=== PATIENT | female | born 1960 | race African-American/Black ===

== ENCOUNTER 2016-11-28 15:18 | Emergency (ER) | payer OTHER ==
[~2016-11-28] VITALS: Ht 160 cm; Wt 83.9 kg
[2016-11-28] MEDS ORDERED: NEXIUM40 MG PO (16:30)
[2016-11-28] MEDS ORDERED: COREG25 MG PO (16:30)
[2016-11-28] MEDS ORDERED: LIPITOR 20 MG T20 M1 PO (16:30)
[2016-11-28] MEDS ORDERED: LEVEMIR SUBQ (16:31)
[2016-11-28] MEDS ORDERED: GLUCOTROL5 MG (16:32)
[2016-11-28 16:45] VITALS: BP 147/90
== END 2016-11-28 16:46 | disposition home or self-care (01) ==
LOC: ER 15:18
DX: S83.411A Sprain of medial collateral ligament of right knee, initial encounter (principal); I10 Essential (primary) hypertension; K21.9 Gastro-esophageal reflux disease without esophagitis; E11.40 Type 2 diabetes mellitus with diabetic neuropathy, unspecified; F10.99 Alcohol use, unspecified with unspecified alcohol-induced disorder; Z79.4 Long term (current) use of insulin; W18.49XA Other slipping, tripping and stumbling without falling, initial encounter; Y93.89 Activity, other specified; Y92.89 Other specified places as the place of occurrence of the external cause; Y99.8 Other external cause status

== ENCOUNTER 2017-06-23 22:57 | Emergency (ER) | payer OTHER ==
[~2017-06-23] VITALS: Ht 160 cm; Wt 87.1 kg
[~2017-06-23 22:57] MED LIST: COREG25 MG PO; GLUCOTROL5 MG; LEVEMIR SUBQ; LIPITOR 20 MG T20 M1 PO; NEXIUM40 MG PO
[2017-06-23 23:19] LABS: URINE BILIRUBIN NEGATIVE (Negative); URINE BLOOD 1+ (Negative); URINE CLARITY CLOUDY; URINE COLOR YELLOW; URINE GLUCOSE-RANDOM* 3+ (Negative); URINE KETONES NEGATIVE (Negative); URINE LEUKOCYTES 1+ (Negative); URINE NITRITE NEGATIVE (Negative); URINE PROTEIN (DIPSTICK) 2+ (Negative); URINE SPECIFIC GRAVITY 1.025 (1.005-1.035); URINE UROBILINOGEN 0.2 E.U./dl (0.2-1.0)
[2017-06-23 23:34] LABS: BACTERIA 1-9 Few /HPF (None Seen); CASTS None Seen /LPF (None Seen); CRYSTALS None Seen /LPF (None Seen); MUCUS None Seen strn/LPF (None Seen); SQUAMOUS 0-3 Few /LPF (0-3); URINE RBC 3-10 Few /HPF (0-2)
== END 2017-06-24 00:41 | disposition home or self-care (01) ==
LOC: ER 22:57
PROVIDERS: Emergency Medicine
DX: N39.0 Urinary tract infection, site not specified (principal); E11.42 Type 2 diabetes mellitus with diabetic polyneuropathy; I10 Essential (primary) hypertension; K21.9 Gastro-esophageal reflux disease without esophagitis; Z79.4 Long term (current) use of insulin

== ENCOUNTER 2019-05-25 08:33 | Emergency (ER) | payer OTHER ==
[~2019-05-25] VITALS: Ht 160 cm; Wt 90.7 kg
[2019-05-25 09:36] LABS: ABSOLUTE NEUTROPHILS 7.5 thou/uL (1.4-8.2); BASOPHILS 0.5 % (0.0-2.0); EOSINOPHILS 1.9 % (0.0-3.0); HEMATOCRIT 30.4 % (37.0-47.0); HEMOGLOBIN 9.7 gm/dL (12.0-15.0); LYMPHOCYTES 13.1 % (24.0-44.0); MCH 25.5 pg (26.0-34.0); MCHC 31.8 g/dL (28.0-37.0); MCV 80.2 fL (80.0-100.0); MONOCYTES 10.7 % (1.0-8.0); PLATELET COUNT 269 thou/uL (150-400); POLYS 73.8 % (36.0-66.0); RDW 14.7 % (10.5-14.5); WBC 10.1 thou/uL (4.0-11.0)
[2019-05-25 09:37] LABS: ANION GAP 9 mmol/L (7-16); BUN 15 mg/dL (7-18); CALCIUM 8.4 mg/dL (8.5-10.1); CHLORIDE 102 mmol/L (98-107); CO2 26 mmol/L (21-32); CREATININE 1.5 mg/dL (0.6-1.0); GLUCOSE 114 mg/dL (74-106); POTASSIUM 3.4 mmol/L (3.5-5.1); SODIUM 137 mmol/L (136-145)
[2019-05-25 09:43] LABS: ALBUMIN 3.1 g/dL (3.4-5.0); DIRECT BILIRUBIN < 0.1 mg/dL (<0.1-0.2); LIPASE 87 U/L (73-393); SGOT 27 U/L (15-37); SGPT 51 U/L (30-65); TOTAL BILIRUBIN 0.2 mg/dL (<0.1-1.0); TOTAL PROTEIN 7.1 g/dL (6.4-8.2)
[2019-05-25 10:37] LABS: URINE BILIRUBIN NEGATIVE (Negative); URINE BLOOD NEGATIVE (Negative); URINE CLARITY CLEAR; URINE COLOR YELLOW; URINE GLUCOSE-RANDOM* NEGATIVE (Negative); URINE KETONES NEGATIVE (Negative); URINE LEUKOCYTES-REFLEX NEGATIVE (Negative); URINE NITRITE-REFLEX NEGATIVE (Negative); URINE PROTEIN (DIPSTICK) 2+ (Negative)
[2019-05-25 10:45] LABS: BACTERIA-REFLEX 1-9 Few /HPF (None Seen); CASTS None Seen /LPF (None Seen); CRYSTALS None Seen /LPF (None Seen); SQUAMOUS 4-10 Moderate /LPF (0-3); URINE RBC None Seen /HPF (0-2); URINE WBC-REFLEX 0-5 Rare /HPF (0-5)
[2019-05-25] MEDS ORDERED: ZOFRAN ODT4 MG PO (11:23)
[2019-05-25 11:46] VITALS: BP 157/84
--- NOTE | 2019-05-27 14:48 | EKG ---
[place] [address] [facility] [place] [address] ELECTROCARDIOGRAM REPORT Name: RYLANDYOANDY Umberto Room #: DEP [facility]#: [id number] Admission: 05/25/19 Attend Phys: Discharge: 05/25/19 Date of : 64 Report #: [id number] THIS REPORT FOR: //name// [facility] ED Test Date: 2019-05-25 Test Time: 08:57:28 Pat Name: YOANDY MARCELINO Department: Room: Gender: F Clinical Information Systems Director: CHERYL : 1960 Requested By: Lisa Pace Order Number: [id number] MD: Brad Rios Measurements Intervals [place] Rate: 106 P: 53 [place]: 128 QRS: 16 QRSD: 88 T: 150 QT: 340 QTc: 452 Interpretive Statements Sinus tachycardia Probable left atrial enlargement Anteroseptal infarct, old Nonspecific T abnormalities, lateral leads Baseline wander in lead(s) V6 No previous ECG available for comparison Electronically Signed On 05-27-2019 14:48:05 ELECTROCARDIOGRAPH OPERATOR by Brad Rios [email or web address] <ELECTRONICALLY SIGNED> By: Brad Rios MD 05/27/19 1448 0857 0857 Brad Rios MD /LULA
== END 2019-05-25 11:45 | disposition home or self-care (01) ==
LOC: ER 08:33
PROVIDERS: Emergency Medicine
DX: K52.9 Noninfective gastroenteritis and colitis, unspecified (principal); I10 Essential (primary) hypertension; K21.9 Gastro-esophageal reflux disease without esophagitis; E11.40 Type 2 diabetes mellitus with diabetic neuropathy, unspecified

== ENCOUNTER 2019-08-31 06:45 | Emergency (ER) | payer OTHER ==
[~2019-08-31] VITALS: Ht 137.2 cm; Wt 89.8 kg
[~2019-08-31 06:45] MED LIST changes: -GLUCOTROL5 MG; +GLUCOTROL5 MG PO; +ZOFRAN ODT4 MG PO
[2019-08-31] MEDS ORDERED: HUMALOG100 UNIT/1 SUBQ (06:51)
[2019-08-31] MEDS ORDERED: ACYCLOVIR 800800 MG PO (07:33)
[2019-08-31] MEDS ORDERED: PREDNISONE 20 M20 MG PO (07:33)
[2019-08-31 07:50] VITALS: BP 152/74
== END 2019-08-31 07:50 | disposition home or self-care (01) ==
LOC: ER 06:45
DX: B02.22 Postherpetic trigeminal neuralgia (principal); E11.40 Type 2 diabetes mellitus with diabetic neuropathy, unspecified; I10 Essential (primary) hypertension; K21.9 Gastro-esophageal reflux disease without esophagitis; Z90.711 Acquired absence of uterus with remaining cervical stump; Z79.899 Other long term (current) drug therapy; Z79.4 Long term (current) use of insulin

== ENCOUNTER 2019-11-24 18:31 | Emergency (ER) | payer OTHER ==
[~2019-11-24] VITALS: Ht 160 cm; Wt 90.7 kg
[~2019-11-24 18:31] MED LIST changes: +ACYCLOVIR 800800 MG PO; +HUMALOG100 UNIT/1 SUBQ; +PREDNISONE 20 M20 MG PO
[2019-11-24 19:05] LABS: ABSOLUTE NEUTROPHILS 7.7 thou/uL (1.4-8.2); BASOPHILS 0.6 % (0.0-2.0); EOSINOPHILS 1.4 % (0.0-3.0); HEMATOCRIT 41.1 % (37.0-47.0); LYMPHOCYTES 18.4 % (24.0-44.0); MCH 25.3 pg (26.0-34.0); MCHC 31.5 g/dL (28.0-37.0); MCV 80.2 fL (80.0-100.0); PLATELET COUNT 267 thou/uL (150-400); POLYS 73.6 % (36.0-66.0); RBC 5.12 mil/uL (4.20-5.00); RDW 18.7 % (10.5-14.5); WBC 10.4 thou/uL (4.0-11.0)
[2019-11-24 19:08] LABS: ANION GAP 9 mmol/L (7-16); BUN 27 mg/dL (7-18); CALCIUM 8.9 mg/dL (8.5-10.1); CHLORIDE 100 mmol/L (98-107); CO2 24 mmol/L (21-32); CREATININE 2.3 mg/dL (0.6-1.0); GLUCOSE 454 mg/dL (74-106); POTASSIUM 4.3 mmol/L (3.5-5.1); SODIUM 133 mmol/L (136-145)
[2019-11-24 19:19] LABS: ALBUMIN 3.4 g/dL (3.4-5.0); LIPASE 212 U/L (73-393); SGOT 20 U/L (15-37); SGPT 53 U/L (30-65); TOTAL BILIRUBIN 0.2 mg/dL (0.2-1.0); TOTAL PROTEIN 7.5 g/dL (6.4-8.2); TROPONIN-I <0.06 ng/mL (<0.06)
[2019-11-24 23:17] VITALS: BP 171/98
--- NOTE | 2019-11-25 08:28 | EKG ---
[facility] [place] [address] ELECTROCARDIOGRAM REPORT Name: YOANDY MARCELINO Room #: DEP [facility]#: [id number] Admission: 11/24/19 Attend Phys: Discharge: 11/24/19 Date of : 64 Report #: [id number] THIS REPORT FOR: cc: TIANA - No family physician/PCP FAM - No family physician/PCP Salinas Reeder MD [facility] THIS REPORT FOR: //name// [facility] ED Test Date: 2019-11-24 Test Time: 18:36:42 Pat Name: YOANDY MARCELINO Department: Room: Gender: F Electric Relay Tester: [facility] : 1960 Requested By: Pete Viera Order Number: [id number] MD: Salinas Reeder Measurements Intervals [place] Rate: 97 P: 4 OR: 135 QRS: 47 QRSD: 96 T: 242 QT: 360 QTc: 458 Interpretive Statements Sinus rhythm Anteroseptal infarct, age indeterminate T wave abnormality, consider inferior and lateral ischemia Compared to ECG 05/25/2019 08:57:28 Sinus tachycardia no longer present T wave abnormality is more pronounced Electronically Signed On 11-25-2019 8:27:58 CDT by Salinas Reeder [email or web address] <ELECTRONICALLY SIGNED> By: Salinas Reeder MD, [facility] 11/25/19 0827 1836 183 Salinas Reeder MD, [facility] /EPI
== END 2019-11-24 23:18 | disposition home or self-care (01) ==
LOC: ER 18:31
PROVIDERS: Emergency Medicine
DX: R07.9 Chest pain, unspecified (principal); I10 Essential (primary) hypertension; E11.9 Type 2 diabetes mellitus without complications; K21.9 Gastro-esophageal reflux disease without esophagitis; Z90.710 Acquired absence of both cervix and uterus; Z79.4 Long term (current) use of insulin; Z79.899 Other long term (current) drug therapy

== ENCOUNTER 2019-12-04 09:45 | Inpatient (IN) | payer OTHER ==
[2019-12-04] VITALS (7 sets, daily range): BP systolic 143–170; BP diastolic 88–102
[~2019-12-04] VITALS: Ht 160 cm; Wt 92.7 kg
--- NOTE | ~2019-12-04 | HC ---
[facility] [place] [address] CONSULTATION Name: YOANDY MARCELINO Room #: 210-P ADM IN M.R.#: [id number] Admission: 12/04/19 Attend Phys: Don Cabral MD Discharge: Date of : 64 Report #: [id number] THIS REPORT FOR: cc: TIANA - Saundra family physician/PCP TIANA - No family physician/PCP Luis Hernandez MD ~ CC: Don MONTIEL physician/PCP REASON FOR CONSULTATION: Elevated creatinine. REASON FOR THE PRESENTATION: Chest pain. HISTORY OF PRESENT ILLNESS: A 59-year-old with history of diabetes mellitus and hypertension. No known previous history of heart issues. She presented with left-sided chest pain. She describes the chest pain being aggravated by ambulation and associated with some sweating. No nausea or vomiting. The patient's creatinine on presentation was 2.5 and has gone down to 2.2. The patient's creatinine values back in May of this year was 1.4, 1.5. I was asked to evaluate this patient as there is a consideration of a cardiac catheterization. She denies any urinary symptoms at present. She is aware that she has stage 3 chronic kidney disease, but she does not know the exact kidney numbers. She denies nonsteroidal anti-inflammatory medication usage. MEDICATIONS: 1. Lipitor. 2. Carvedilol. 3. Levemir insulin. 4. Glipizide. PAST MEDICAL HISTORY: 1. Diabetes mellitus. 2. Hypertension. 3. Hyperlipidemia. ALLERGIES: None. FAMILY HISTORY: No known chronic kidney disease. REVIEW OF SYSTEMS: GENERAL: No fever or chills. CARDIOVASCULAR: Chest pain as per the history of present illness. PULMONARY: No cough or hemoptysis. GASTROINTESTINAL: No nausea or vomiting. GENITOURINARY: No frequency, no urgency. MUSCULOSKELETAL: Occasional back pain. SKIN: No rash or ulcerations. [facility] [address] [place] [address] CONSULTATION Name: YOANDY MARCELINO Room #: 210-P [facility] IN [facility]#: [id number] Admission: 12/04/19 Attend Phys: Don Cabral MD Discharge: Date of : 64 Report #: [id number] NEUROLOGICAL: No headache, no dizziness. PHYSICAL EXAMINATION: VITAL SIGNS: Temperature is 36.8, pulse rate is 73, blood pressure is 167/99. HEAD AND NECK: No jugular venous distention, no bruit, no thyromegaly. CHEST: Clear to auscultation bilaterally. CARDIOVASCULAR: No rub detected. ABDOMEN: Soft, nontender. LOWER EXTREMITIES: No edema. LABORATORY VALUES: Sodium 138, potassium 4.3, chloride is 104, carbon dioxide 24, BUN 31, creatinine 2.2. ASSESSMENT AND PLAN: 1. Stage 3 chronic kidney disease. 2. Diabetes mellitus. 3. Hypertension. 4. The patient is at risk of having contrast-induced nephropathy. This was discussed with her. She was advised to discuss her options with the cardiac team. Given her uncontrolled blood pressure, uncontrolled diabetes mellitus, she certainly is at risk of developing contrast-induced nephropathy. 5. Discontinue angiotensin receptor kel. 6. If the patient opted to proceed with the cardiac catheterization, she will need IV fluid resuscitation. By: 1039 1127 Luis Hernandez MD /nt
[2019-12-04 10:40] LABS: ABSOLUTE NEUTROPHILS 5.6 thou/uL (1.4-8.2); BASOPHILS 0.7 % (0.0-2.0); EOSINOPHILS 1.3 % (0.0-3.0); HEMATOCRIT 43.4 % (37.0-47.0); HEMOGLOBIN 13.6 gm/dL (12.0-15.0); LYMPHOCYTES 22.1 % (24.0-44.0); MCH 25.3 pg (26.0-34.0); MCHC 31.3 g/dL (28.0-37.0); MCV 80.9 fL (80.0-100.0); MONOCYTES 7.4 % (1.0-8.0); PLATELET COUNT 267 thou/uL (150-400); POLYS 68.5 % (36.0-66.0); RBC 5.36 mil/uL (4.20-5.00); RDW 17.8 % (10.5-14.5); WBC 8.2 thou/uL (4.0-11.0)
[2019-12-04 10:47] LABS: ANION GAP 8 mmol/L (7-16); BUN 35 mg/dL (7-18); CALCIUM 9.3 mg/dL (8.5-10.1); CHLORIDE 101 mmol/L (98-107); CO2 27 mmol/L (21-32); CREATININE 2.5 mg/dL (0.6-1.0); GLUCOSE 399 mg/dL (74-106); POTASSIUM 4.3 mmol/L (3.5-5.1); SODIUM 136 mmol/L (136-145)
[2019-12-04 10:57] LABS: ALBUMIN 3.8 g/dL (3.4-5.0); DIRECT BILIRUBIN < 0.1 mg/dL (<0.1-0.2); SGOT 20 U/L (15-37); SGPT 42 U/L (30-65); TOTAL BILIRUBIN 0.3 mg/dL (0.2-1.0); TROPONIN-I <0.06 ng/mL (<0.06)
[2019-12-04 13:23] LABS: TSH 0.712 uIU/mL (0.358-3.740)
--- NOTE | 2019-12-04 13:50 | EKG ---
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: [employer] : 1960 Requested By: Lisa Pace Order Number: [id number] MD: Brad Rios Measurements Intervals [place] Rate: 86 P: 57 [place]: 134 QRS: 8 QRSD: 102 T: 159 QT: 383 QTc: 458 Interpretive Statements Sinus rhythm LVH with secondary repolarization abnormality Anterior infarct, old Compared to ECG 11/24/2019 18:36:42 Left ventricular hypertrophy now present Early repolarization now present T-wave abnormality no longer present Possible ischemia no longer present Myocardial infarct finding still present Electronically Signed On 12-04-2019 13:50:42 CDT by Brad Rios [email or web address] <ELECTRONICALLY SIGNED> By: Brad Rios MD 12/04/19 1350 0954 0954 Brad Rios MD /EPI
--- NOTE | 2019-12-04 15:30 | 2DMMODE ---
[address] [address] 2 D/M-MODE ECHOCARDIOGRAM Name: YOANDY MARCELINO Room #: 170-8 ADM IN M.R.#: [id number] Admission: 12/04/19 Attend Phys: Don Cabral MD Discharge: Date of : 64 Report #: [id number] THIS REPORT FOR: cc: FAM - No family physician/PCP FAM - No family physician/PCP Salinas Reeder MD [facility] ~ APPROVED REPORT Study performed: 12/04/2019 13:24:18 EXAM: Comprehensive 2D, Doppler, and color-flow Echocardiogram Patient Location: ER Room #: 8 Status: routine BSA: 1.93 HR: 79 bpm BP: 174/103 mmHg Rhythm: NSR Other Information Study Quality: Adequate Indications Diabetes Dyspnea Chest Pain Hypertension/HDD 2D Dimensions IVC: 16.00 mm Volumes Left Atrial Volume (Systole) LA ESV Index: 23.00 mL/m2 Tricuspid Valve PA Pressure: 25.00 mmHg Left Ventricle The left ventricle is normal size. There is normal LV segmental wall motion. Mild concentric left ventricular hypertrophy. The left ventricular systolic function is normal. The left ventricular ejection fraction is within the normal range. LVEF is 50-55%. Mild diastolic dysfunction is present (impaired relaxation [address] [address] 2 D/M-MODE ECHOCARDIOGRAM Name: YOANDY MARCELINO Room #: 170-8 ADM IN M.R.#: [id number] Admission: 12/04/19 Attend Phys: Yury Wilcox Discharge: Date of : 64 Report #: [id number] pattern). Right Ventricle The right ventricle is normal size. The right ventricular systolic function is normal. Atria The left atrium size is normal. The right atrium size is normal. Aortic Valve The aortic valve is normal in structure. No aortic regurgitation is present. There is no aortic valvular stenosis. Mitral Valve The mitral valve is normal in structure. Mild mitral regurgitation. No evidence of mitral valve stenosis. Tricuspid Valve The tricuspid valve is normal in structure. There is trace tricuspid regurgitation. Estimated PAP 25 mmHg. There is no pulmonary hypertension. Pulmonic Valve The pulmonary valve is normal in structure. There is no pulmonic valvular regurgitation. Great Vessels The aortic root is normal in size. IVC is normal in size and collapses >50% with inspiration. Pericardium There is no pericardial effusion. <Conclusion> The left ventricular systolic function is normal. There is normal LV segmental wall motion. Mild concentric left ventricular hypertrophy. LVEF is 50-55%. Mild diastolic dysfunction The aortic valve is normal in structure. No aortic regurgitation or stenosis. The mitral valve is normal in structure. Mild mitral regurgitation. There is trace tricuspid regurgitation. Estimated pulmonary artery [facility] [address] [place] [address] 2 D/M-MODE ECHOCARDIOGRAM Name: YOANDY MARCELINO Room #: 170-8 ADM IN M.R.#: [id number] Admission: 12/04/19 Attend Phys: Yury Wilcox Discharge: Date of : 64 Report #: [id number] pressure of 25 mmHg. There is no pericardial effusion. <ELECTRONICALLY SIGNED> By: Salinas Reeder MD, FACC 12/04/19 1530 29 29 Salinas Reeder MD, FACC /INF
--- NOTE | 2019-12-04 20:49 | NUR ---
PATIENT ARRIVED FROM ED VIA BED ALERT AND ORIENTED X4. BP 179/102, SIADA SENIOR BUSINESS DEVELOPMENT ANALYST NOTIFIED, NEW ORDERS RECIEVED AND PATIENT ACCORDINGLY.
[2019-12-05] VITALS (15 sets, daily range): BP systolic 102–167; BP diastolic 74–99
[2019-12-05 05:11] LABS: GLYCOHEMOGLOBIN (HGB A1C) 10.9 % (4.8-5.6)
[2019-12-05 05:55] LABS: ABSOLUTE NEUTROPHILS 6.8 thou/uL (1.4-8.2); BASOPHILS 0.6 % (0.0-2.0); EOSINOPHILS 1.5 % (0.0-3.0); HEMATOCRIT 39.9 % (37.0-47.0); HEMOGLOBIN 12.4 gm/dL (12.0-15.0); LYMPHOCYTES 21.4 % (24.0-44.0); MCH 25.2 pg (26.0-34.0); MCV 81.2 fL (80.0-100.0); MONOCYTES 6.7 % (1.0-8.0); PLATELET COUNT 256 thou/uL (150-400); POLYS 69.8 % (36.0-66.0); RBC 4.91 mil/uL (4.20-5.00); RDW 17.1 % (10.5-14.5); WBC 9.7 thou/uL (4.0-11.0)
[2019-12-05 06:13] LABS: ANION GAP 10 mmol/L (7-16); BUN 31 mg/dL (7-18); CALCIUM 9.1 mg/dL (8.5-10.1); CHLORIDE 104 mmol/L (98-107); CHOLESTEROL 175 mg/dL (<200); CO2 24 mmol/L (21-32); CREATININE 2.2 mg/dL (0.6-1.0); GLUCOSE 328 mg/dL (74-106); HDL CHOLESTEROL 36 mg/dL (>40); LDL CHOLESTEROL 106 mg/dL (<100); MAGNESIUM 2.2 mg/dL (1.8-2.4); POTASSIUM 4.3 mmol/L (3.5-5.1); SERUM ASSESSMENT Clear; SODIUM 138 mmol/L (136-145); TC:HDL 4.9 Ratio (Not establshd); TRIGLYCERIDE 167 mg/dL (<150); VLDL 33 mg/dL (<40)
--- NOTE | 2019-12-05 07:27 | NUR ---
0200 AWOKEN WITH CHEST PAIN, MID CHEST TO RIGHT SIDE. 3 NTG GIVEN, EKG DONE. NOTIFIED JOSE ROBERTO MILLING MACHINE SET UP OPERATOR. ORDERS FOR MOROPHINE X1 AND GIVEN. PATIENT SLEEPING AT 0300 WITHOUT COMPLAINTS. 0500 SLEPT MOST OF SHIFT. UP AD BALTA TO BATHROOM. DENIES FURTHER COMPLAINTS OF CHEST PAIN. WORKING ON GOALS AND PLAN OF CARE FOR NOC. NOT PROGRESSING TOWARDS DISCHARGE GOALS. CONTINUE TO ASSES CLOSELY.
--- NOTE | 2019-12-05 13:41 | CATHLAB ---
[facility] [place] [address] INVASIVE PROCEDURE REPORT Name: YOANDY MARCELINO Room #: 210-P ADM IN M.R.#: [id number] Admission: 12/04/19 Attend Phys: Don Cabral MD Discharge: Date of : 64 Report #: [id number] THIS REPORT FOR: cc: FAM - No family physician/PCP FAM - No family physician/PCP Salinas Reeder MD [facility] ~ APPROVED REPORT Study performed: 12/05/2019 10:27:44 Patient Details Patient Status: In-Patient Room #: The patient is a 59 year-old female Event Personnel Salinas Reeder Talent Development Specialist, Elma Drake RN RN, Eyal Leos RN RN, Christina Saleh RTR, iVnay Paulino Sherra RTR Monitor Procedures Performed Art Access - R femoral artery* RACHEL Place w/wo Plasty Single DIAG 894148 31637 Initial Mod Sed Same Phys/QHP Gr5y 198439 65805 Mod Sed Same Phys/QHP Ea 556027 Hemostasis w/ Mynx Left Heart Cath w/or w/o Coronaries [id number] [facility] Indication Chest pain Procedure Narrative The patient was brought urgently to the Cardiac Catheterization Laboratory and was prepped and draped in a sterile manner. The Right Groin^ was infiltrated with 1% Lidocaine subcutaneous anesthesia. A PINNACLE 6FR Sheath #[id number] sheath was inserted into the RFA^. Coronary angiography was performed using coronary diagnostic catheters. The right coronary system was accessed and visualized with a JR4 catheter. The left coronary system was accessed and visualized with a JL4 catheter. The left ventricle was accessed and visualized with a PIGTAIL catheter. Closure device was deployed with a 6 Fr MYNXGRIP 6/7F #[id number]. The patient tolerated the procedure well and there were no complications associated with the procedure. Intraoperative Conscious Sedation Sedation start time: 1152 Case end Time: 1242 [facility] [place] [address] INVASIVE PROCEDURE REPORT Name: YOANDY MARCELINO Room #: 210-P [facility] IN .R.#: [id number] Admission: 12/04/19 Attend Phys: Yury Wilcox Discharge: Date of : 64 Report #: [id number] Fentanyl 50 mcg Versed 1 mg Fluoro Time: 8.00 minutes Dose: DAP 01796.90 cGycm2 1620 mGy Contrast Type and Amount: Visipaque 105 ml Coronary Angiography The patient's coronary anatomy is right dominant. Diagnostic Cath Left Main Normal left main LAD Critical 99% proximal LAD stenosis Minimal plaquing at the origin of the LAD (10-20%) Diagonal 1 Normal first diagonal branch Circumflex Normal, large nondominant circumflex OM1 Normal OM1 OM2 Normal, bifurcating OM 2 Right Coronary Dominant right coronary, angiographically normal R PDA Normal Left Ventriculography Left Ventriculography was not performed. Hemodynamics The aortic pressure is 143/75 mmHg with a mean of 103 mmHg. The left ventricular pressure is 135/12 mmHg with a mean of mmHg. The left ventricular end diastolic pressure is 22 mmHg. PCI Technique Lesion Anticoagulation was achieved with Heparin, Integrilin. Patient was preloaded with Plavix. Percutaneous coronary intervention was performed on the proximal left anterior descending artery segment. The lesion stenosis prior to intervention was 99% with RAZA 2 flow. A LAUNCHER 6FR EBU 3.5 #[id number] Guide Catheter was used to engage the ostium. A Luge Wire .014 x 182CM #[id number] Interventional Guidewire was used to cross the lesion. BALLOON DILATION A Balloon catheter Euphora RX 2.5 x 15 #[id number] was inserted and inflated up to 14.00atm for 27seconds. Repeat angiography revealed the following post-dilatation results: Moderate residual stenosis. STENT DEPLOYMENT A drug-eluting stent XIENCE CRYSTAL RX 3.5 X 18 #[id number] was inserted and inflated up to 12.00atm for 31seconds. Repeat angiography [facility] [address] [place] [address] INVASIVE PROCEDURE REPORT Name: YOANDY MARCELINO Room #: 210-P [facility] IN M.R.#: [id number] Admission: 12/04/19 Attend Phys: Yury Wilcox Discharge: Date of : 64 Report #: [id number] revealed the following post-stent deployment results: 0% residual stenosis. POST STENT DEPLOYMENT BALLOON DILATION A Balloon catheter TREK NC RX 3.5 X 12 #[id number] was inserted and inflated up to 16.00atm for 30seconds. Additional Inflation: 16.00atm for 26seconds. Final angiography reveals 0 % stenosis with RAZA 3 flow. Conclusion 1. Normal left main 2. Critical 99% proximal LAD stenosis stented with a 3.5 x 18 mm Xience medicated stent post-dilated to 3.6mm 3. Normal circumflex 4. Normal dominant right coronary Recommendations Cardiac Rehabilitation Referral <ELECTRONICALLY SIGNED> By: Salinas Reeder MD, FACC 12/05/191340 40 40 Salinas Reeder MD, FACC /INF
--- NOTE | 2019-12-05 19:12 | NUR ---
ASSUMED CARE AT SHIFT CHANGE ALERT AND ORIENTED X4, NPO FOR CATHLAB. ASSESSMENT CHARTED. S/P RT HEART CATH, AND POST CATH ASSESSMENT COMPLETED, RT GRION SITE D/C/I. MAKES NEEDS KNOWN, AND WILL CONTINUE WITH POC.
[2019-12-06 00:05] VITALS: BP 148/85
[2019-12-06 03:20] VITALS: BP 149/81
[2019-12-06 05:20] LABS: HEMOGLOBIN 11.5 gm/dL (12.0-15.0); MCH 25.5 pg (26.0-34.0); MCHC 31.2 g/dL (28.0-37.0); RBC 4.51 mil/uL (4.20-5.00); RDW 17.5 % (10.5-14.5); WBC 13.2 thou/uL (4.0-11.0)
[2019-12-06 06:40] LABS: ALBUMIN 3.1 g/dL (3.4-5.0); ANION GAP 8 mmol/L (7-16); BUN 25 mg/dL (7-18); CALCIUM 8.5 mg/dL (8.5-10.1); CHLORIDE 105 mmol/L (98-107); CO2 27 mmol/L (21-32); GLUCOSE 154 mg/dL (74-106); PHOSPHORUS 3.1 mg/dL (2.5-4.9); SGOT 23 U/L (15-37); SGPT 41 U/L (30-65); SODIUM 140 mmol/L (136-145); TOTAL BILIRUBIN 0.3 mg/dL (0.2-1.0); TOTAL PROTEIN 6.6 g/dL (6.4-8.2); TROPONIN-I <0.06 ng/mL (<0.06)
[2019-12-06 07:25] VITALS: BP 143/84
--- NOTE | 2019-12-06 08:05 | NUR ---
SLEPT PART OF SHIFT. WORKING ON GOALS AND PLAN OF CARE FOR NOC. DENIES COMPLAINTS OF CHEST PAIN. CATH CHECKS Q4H. CONTINUE TO ASSES.
[2019-12-06] MEDS ORDERED: CLOPIDOGREL75 MG PO (08:56)
[2019-12-06] MEDS ORDERED: COZAAR 50 MG TA50 M1 PO (08:56)
[2019-12-06] MEDS ORDERED: NORVASC10 MG PO (08:56)
[2019-12-06] MEDS ORDERED: LIPITOR40 MG PO (08:56)
[2019-12-06] MEDS ORDERED: ASPIR 8181 MG PO (08:56)
--- NOTE | 2019-12-06 09:04 | EKG ---
[facility] Emilie Norton true[x] [place] [address] ELECTROCARDIOGRAM REPORT Name: YOANDY MARCELINO Room #: 210-P ADM IN M.R.#: [id number] Admission: 12/04/19 Attend Phys: Don Cabral MD Discharge: Date of : 64 Report #: [id number] THIS REPORT FOR: cc: TIANA - Saundra family physician/PCP TIANA - Saundra family physician/PCP Salinas Reeder MD [facility] THIS REPORT FOR: //name// [facility] Test Date: 2019-12-05 Test Time: 02:11:31 Pat Name: YOANDY MARCELINO Department: Room: 210 Gender: F 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: Vannesa HALEY : 1960 Requested By: Doreen Brewster Order Number: [id number] MD: Salinas Reeder Measurements Intervals [place] Rate: 93 P: 76 [place]: 131 QRS: 5 QRSD: 95 T: 130 QT: 367 QTc: 457 Interpretive Statements Sinus rhythm Left ventricular hypertrophy Anterior infarct, old Nonspecific T abnormalities, lateral leads Baseline wander in lead(s) I,II,aVR Compared to ECG 12/04/2019 09:54:20 No significant change was found Electronically Signed On 12-06-2019 9:03:49 CDT by Salinas Reeder [email or web address] <ELECTRONICALLY SIGNED> By: Salinas Reeder MD, FAC 12/06/19902 0 0 Salinas Reeder MD, [facility] /EPI
--- NOTE | 2019-12-06 09:13 | EKG ---
[facility] [place] [address] ELECTROCARDIOGRAM REPORT Name: YOANDY MARCELINO Room #: 210- ADM IN M.R.#: [id number] Admission: 12/04/19 Attend Phys: Don Cabral MD Discharge: Date of : 64 Report #: [id number] THIS REPORT FOR: cc: TIANA - Saundra family physician/PCP TIANA - Saundra family physician/PCP Salinas Reeder MD [facility] THIS REPORT FOR: //name// [facility] Test Date: 2019-12-05 Test Time: 13:10:53 Pat Name: YOANDY MARCELINO Department: Room: 210 Gender: F Wharf Tender: Yury ARENAS : 1960 Requested By: Salinas Reeder Order Number: [id number] MD: Salinas Reeder Measurements Intervals [place] Rate: 80 P: 57 [place]: 135 QRS: 20 QRSD: 99 T: 174 QT: 405 QTc: 468 Interpretive Statements Sinus rhythm Left ventricular hypertrophy Anterior infarct, old Abnormal T, consider ischemia, lateral leads Compared to ECG 12/05/2019 02:11:31 No significant change was found Electronically Signed On 12-06-2019 9:13:33 CDT by Salinas Reeder [email or web address] <ELECTRONICALLY SIGNED> By: Salinas Reeder MD, [facility] 12/06/19912 09 09 Salinas Reeder MD, [facility] /EPI
--- NOTE | 2019-12-06 09:25 | EKG ---
[facility] [place] [address] ELECTROCARDIOGRAM REPORT Name: YOANDY MARCELINO Room #: 210-P ADM IN M.R.#: [id number] Admission: 12/04/19 Attend Phys: Don Cabral MD Discharge: Date of : 64 Report #: [id number] THIS REPORT FOR: cc: TIANA - Saundra family physician/PCP TIANA - Saundra family physician/PCP Salinas Reeder MD [facility] THIS REPORT FOR: //name// [facility] Test Date: 2019-12-06 Test Time: 07:28:57 Pat Name: YOANDY MARCELINO Department: Room: 210 Gender: F Soft Hat Binder: JAQUAN : 1960 Requested By: Salinas Reeder Order Number: [id number] MD: Salinas Reeder Measurements Intervals [place] Rate: 88 P: 66 [place]: 133 QRS: 14 QRSD: 95 T: 173 QT: 375 QTc: 454 Interpretive Statements Sinus rhythm Anteroseptal infarct, age indeterminate Abnormal T wave, lateral leads Baseline wander in lead(s) II,III,aVF Compared to ECG 12/05/2019 13:10:53 No significant change was found Electronically Signed On 12-06-2019 9:25:05 CDT by Salinas Reeder [email or web address] <ELECTRONICALLY SIGNED> By: Salinas Reeder MD, [facility] 12/06/19924 7 7 Salinas Reeder MD, [facility] /EPI
[2019-12-06 11:24] VITALS: BP 143/84
--- NOTE | 2019-12-06 11:26 | NUR ---
Pt dcing home today. She had cardiac cath with one stent yesterday. Pt works but does not have health insurance. [facility] Will ask [employer] to screen for [place] medicaid application and or rui application. The pt declined medication assistance indicating she has a discount at her pharmacy. Pt is up ad jason and anxious to dc home this morning. No cm interventions indicated.
--- NOTE | 2019-12-06 11:32 | NUR ---
RECEIVED PT'S CARE AROUND 0730; PT. ON BED; ALERT; DURING AM ASSESSMENT PT. AOX4; ASKED WHEN HOSPITALIST WILL ROUND BECAUSE OTHER PHYSICIAN "HAVE CLEAR ME OUT AND I WANT TO KNOW WHEN I WILL LEAVE"; EDUCATED ABOUT PHYSICIANS ROUNDING; ST. UNDERSTANDING; PER MEDICAID BILLER REQUESTED ASKED IF NEEDS HELP AND HOW TO FOLLOW WITH PHYSICIAN AFTER BEING D/C; PT. ST. "YOU LET ME CARE ABOUT THAT"; "YOU DO NOT HAVE TO CARE ABOUT IT"; MEDICAID BILLER NOTIFIED; PER MEDICAID BILLER TO GIVE SUMMARY IN ORDER TO FOLLOW UP WITH REGULAR DOCTOR; WILL DO; ASSESSMENT CHARGED; FOLLOWED POC; WORKING ON D/C PAPERS;
[2019-12-06 11:38] VITALS: BP 143/84
== END 2019-12-06 12:39 | disposition home or self-care (01) | DRG 247 ==
LOC: ER 09:45 → EROBS 11:46 → 2N 15:25
PROVIDERS: Emergency Medicine; Internal Medicine; Nurse Practitioner; ADMIT Hospitalist; ATTEND Hospitalist
PROC: B211YZZ Fluoroscopy of Multiple Coronary Arteries using Other Contrast (ICD-10-PCS; principal; 2019-12-05)
PROC: 4A023N7 Measurement of Cardiac Sampling and Pressure, Left Heart, Percutaneous Approach (ICD-10-PCS; principal; 2019-12-05)
PROC: 027034Z Dilation of Coronary Artery, One Artery with Drug-eluting Intraluminal Device, Percutaneous Approach (ICD-10-PCS; principal; 2019-12-05)
DX: I25.110 Atherosclerotic heart disease of native coronary artery with unstable angina pectoris (principal); N17.9 Acute kidney failure, unspecified; K21.9 Gastro-esophageal reflux disease without esophagitis; E11.40 Type 2 diabetes mellitus with diabetic neuropathy, unspecified; N18.3 Chronic kidney disease, stage 3 (moderate); E11.22 Type 2 diabetes mellitus with diabetic chronic kidney disease; E86.0 Dehydration; R13.10 Dysphagia, unspecified; K76.0 Fatty (change of) liver, not elsewhere classified; I12.9 Hypertensive chronic kidney disease with stage 1 through stage 4 chronic kidney disease, or unspecified chronic kidney disease; Z82.49 Family history of ischemic heart disease and other diseases of the circulatory system; Z90.710 Acquired absence of both cervix and uterus; Z83.3 Family history of diabetes mellitus; Z95.5 Presence of coronary angioplasty implant and graft
CPT/HCPCS: 10081

== ENCOUNTER 2020-04-02 20:10 | Emergency (ER) | payer OTHER ==
[~2020-04-02] VITALS: Ht 162.6 cm; Wt 90.7 kg
[~2020-04-02 20:10] MED LIST changes: +ASPIR 8181 MG PO; +CLOPIDOGREL75 MG PO; +COZAAR 50 MG TA50 M1 PO; +LIPITOR40 MG PO; +NORVASC10 MG PO
[2020-04-02 20:55] LABS: URINE BILIRUBIN NEGATIVE (Negative); URINE BLOOD TRACE (Negative); URINE CLARITY CLEAR; URINE COLOR YELLOW; URINE GLUCOSE-RANDOM* 3+ (Negative); URINE KETONES NEGATIVE (Negative); URINE LEUKOCYTES-REFLEX NEGATIVE (Negative); URINE NITRITE-REFLEX NEGATIVE (Negative); URINE PROTEIN (DIPSTICK) 1+ (Negative); URINE UROBILINOGEN 0.2 E.U./dl (0.2-1.0)
[2020-04-02 20:59] LABS: BE(vivo) -0.1 mmol/L (-2 to +3); HCO3 26.9 mmol/L (22.0-26.0); PCO2 VENOUS 53.5 mmHg (41.0-51.0); PO2 VENOUS 22.4 mmHg (35.0-45.0)
[2020-04-02 21:00] LABS: ABSOLUTE NEUTROPHILS 4.4 thou/uL (1.4-8.2); BASOPHILS 0.5 % (0.0-2.0); EOSINOPHILS 0.1 % (0.0-3.0); HEMATOCRIT 42.5 % (37.0-47.0); HEMOGLOBIN 14.1 gm/dL (12.0-15.0); LYMPHOCYTES 24.1 % (24.0-44.0); MCH 26.1 pg (26.0-34.0); MCHC 33.3 g/dL (28.0-37.0); MCV 78.4 fL (80.0-100.0); MONOCYTES 9.3 % (1.0-8.0); PLATELET COUNT 218 thou/uL (150-400); RBC 5.42 mil/uL (4.20-5.00); RDW 14.4 % (10.5-14.5); WBC 6.6 thou/uL (4.0-11.0)
[2020-04-02 21:06] LABS: BACTERIA-REFLEX 1-9 Few /HPF (None Seen); CASTS None Seen /LPF (None Seen); CRYSTALS None Seen /LPF (None Seen); MUCUS 4-6 Moderate strn/LPF (None Seen); SQUAMOUS 4-10 Moderate /LPF (0-3); URINE RBC 0-2 Rare /HPF (0-2); URINE WBC-REFLEX 0-5 Rare /HPF (0-5); YEAST-REFLEX Present (None Seen)
[2020-04-02 21:23] LABS: ALBUMIN 2.9 g/dL (3.4-5.0); CALCIUM 8.4 mg/dL (8.5-10.1); CREATININE 2.9 mg/dL (0.6-1.0); TOTAL BILIRUBIN 0.5 mg/dL (0.2-1.0); TOTAL PROTEIN 7.7 g/dL (6.4-8.2)
[2020-04-02 21:35] LABS: POTASSIUM 5.8 mmol/L (3.5-5.1)
[2020-04-02 23:50] VITALS: BP 104/74
== END 2020-04-02 23:51 | disposition home or self-care (01) ==
LOC: ER 20:10
PROVIDERS: Physician Assistant
DX: E11.65 Type 2 diabetes mellitus with hyperglycemia (principal); E11.22 Type 2 diabetes mellitus with diabetic chronic kidney disease; N18.9 Chronic kidney disease, unspecified; E88.09 Other disorders of plasma-protein metabolism, not elsewhere classified; E86.0 Dehydration; I10 Essential (primary) hypertension; K21.9 Gastro-esophageal reflux disease without esophagitis; E11.40 Type 2 diabetes mellitus with diabetic neuropathy, unspecified; Z90.711 Acquired absence of uterus with remaining cervical stump; Z79.899 Other long term (current) drug therapy; Z79.82 Long term (current) use of aspirin; Z79.4 Long term (current) use of insulin

== ENCOUNTER 2020-04-05 19:28 | Inpatient (IN) | payer OTHER ==
[~2020-04-05] VITALS: Ht 160 cm; Wt 91.6 kg
[2020-04-05 19:30] VITALS: BP 103/63
[2020-04-05 20:28] LABS: BE(vivo) -4.3 mmol/L (-2 to +3); HCO3 21.8 mmol/L (22.0-26.0); PCO2 VENOUS 43.8 mmHg (41.0-51.0); PO2 VENOUS 23.9 mmHg (35.0-45.0)
[2020-04-05 20:46] LABS: ABSOLUTE NEUTROPHILS 4.7 thou/uL (1.4-8.2); BASOPHILS 0.8 % (0.0-2.0); EOSINOPHILS 0.1 % (0.0-3.0); HEMATOCRIT 39.1 % (37.0-47.0); HEMOGLOBIN 12.8 gm/dL (12.0-15.0); LYMPHOCYTES 19.8 % (24.0-44.0); MCHC 32.6 g/dL (28.0-37.0); MCV 79.6 fL (80.0-100.0); MONOCYTES 7.5 % (1.0-8.0); PLATELET COUNT 184 thou/uL (150-400); POLYS 71.8 % (36.0-66.0); RBC 4.91 mil/uL (4.20-5.00); RDW 13.9 % (10.5-14.5); WBC 6.5 thou/uL (4.0-11.0)
[2020-04-05 21:06] LABS: CALCIUM 8.7 mg/dL (8.5-10.1); CREATININE 3.6 mg/dL (0.6-1.0)
[2020-04-05 21:09] LABS: ALBUMIN 2.9 g/dL (3.4-5.0); TOTAL BILIRUBIN 0.5 mg/dL (0.2-1.0); TOTAL PROTEIN 7.8 g/dL (6.4-8.2)
[2020-04-06 00:01] VITALS: BP 153/83
[2020-04-06 06:12] LABS: CALCIUM 8.6 mg/dL (8.5-10.1); CREATININE 3.6 mg/dL (0.6-1.0); MAGNESIUM 2.3 mg/dL (1.8-2.4); POTASSIUM 5.2 mmol/L (3.5-5.1)
[2020-04-06 06:37] LABS: HEMATOCRIT 37.1 % (37.0-47.0); HEMOGLOBIN 11.8 gm/dL (12.0-15.0); MCH 25.3 pg (26.0-34.0); RBC 4.69 mil/uL (4.20-5.00); RDW 13.7 % (10.5-14.5); WBC 6.8 thou/uL (4.0-11.0)
[2020-04-06 07:12] LABS: CALCIUM 8.3 mg/dL (8.5-10.1); CREATININE 2.7 mg/dL (0.6-1.0)
[2020-04-06 07:14] LABS: POTASSIUM 3.7 mmol/L (3.5-5.1)
--- NOTE | 2020-04-06 13:35 | EKG ---
[facility] [place] [address] ELECTROCARDIOGRAM REPORT Name: YOANDY MARCELINO Room #: 170-6 ADM IN M.R.#: [id number] Admission: 04/05/20 Attend Phys: Tom Mina MD Discharge: Date of : 64 Report #: [id number] THIS REPORT FOR: cc: TIANA - Saundra family physician/PCP TIANA - Saundra family physician/PCP Eliot Varghese MD [facility] THIS REPORT FOR: //name// [facility] ED Test Date: 2020-04-05 Test Time: 19:58:16 Pat Name: YOANDY MARCELINO Department: Room: 170 6 Gender: F Cell Support Operator: [facility] : 1960 Requested By: Tom Mina Order Number: [id number] MD: Eliot Varghese Measurements Intervals [place] Rate: 97 P: 55 [place]: 135 QRS: 14 QRSD: 90 T: 79 QT: 350 QTc: 445 Interpretive Statements Sinus rhythm Anteroseptal infarct, old Baseline wander in lead(s) I,aVR,V1 Compared to ECG 12/06/2019 07:28:57 T-wave abnormality no longer present Myocardial infarct finding still present Electronically Signed On 04-06-2020 13:35:37 FURNITURE POLISHER by Eliot Varghese [email or web address] <ELECTRONICALLY SIGNED> By: Eliot Varghese MD, FACC 04/06/20 1335 57 57 Eliot Varghese MD, FAC /EPI
[2020-04-06 18:02] VITALS: BP 137/85
[2020-04-06 18:53] VITALS: BP 134/76
[2020-04-06 19:45] VITALS: BP 153/93
[2020-04-06 23:20] VITALS: BP 128/78
[2020-04-07 03:51] VITALS: BP 139/85
[2020-04-07 05:43] LABS: URINE BILIRUBIN NEGATIVE (Negative); URINE BLOOD TRACE (Negative); URINE CLARITY CLEAR; URINE COLOR YELLOW; URINE GLUCOSE-RANDOM* 3+ (Negative); URINE KETONES TRACE (Negative); URINE LEUKOCYTES-REFLEX NEGATIVE (Negative); URINE NITRITE-REFLEX NEGATIVE (Negative); URINE PROTEIN (DIPSTICK) 2+ (Negative); URINE UROBILINOGEN 0.2 E.U./dl (0.2-1.0)
[2020-04-07 06:33] LABS: BACTERIA-REFLEX 1-9 Few /HPF (None Seen); CASTS None Seen /LPF (None Seen); CRYSTALS None Seen /LPF (None Seen); MUCUS 4-6 Moderate strn/LPF (None Seen); SQUAMOUS 4-10 Moderate /LPF (0-3); URINE RBC 0-2 Rare /HPF (0-2); URINE WBC-REFLEX 0-5 Rare /HPF (0-5)
[2020-04-07 07:15] VITALS: BP 137/83
[2020-04-07 11:06] VITALS: BP 131/84
[2020-04-07 19:13] VITALS: BP 168/91
[2020-04-08 03:29] VITALS: BP 147/85
[2020-04-08 06:13] LABS: ABSOLUTE NEUTROPHILS 8.6 thou/uL (1.4-8.2); BASOPHILS 0.2 % (0.0-2.0); EOSINOPHILS 0.1 % (0.0-3.0); HEMATOCRIT 35.5 % (37.0-47.0); HEMOGLOBIN 11.5 gm/dL (12.0-15.0); LYMPHOCYTES 12.3 % (24.0-44.0); MCH 25.7 pg (26.0-34.0); MCHC 32.3 g/dL (28.0-37.0); MCV 79.5 fL (80.0-100.0); MONOCYTES 5.6 % (1.0-8.0); PLATELET COUNT 218 thou/uL (150-400); POLYS 81.8 % (36.0-66.0); RBC 4.47 mil/uL (4.20-5.00); RDW 14.1 % (10.5-14.5); WBC 10.5 thou/uL (4.0-11.0)
[2020-04-08 06:34] LABS: ALBUMIN 2.3 g/dL (3.4-5.0); CALCIUM 8.4 mg/dL (8.5-10.1); PHOSPHORUS 1.7 mg/dL (2.5-4.9); POTASSIUM 3.7 mmol/L (3.5-5.1); TOTAL BILIRUBIN 0.3 mg/dL (0.2-1.0); TOTAL PROTEIN 6.7 g/dL (6.4-8.2)
[2020-04-08 06:43] LABS: CREATININE 1.7 mg/dL (0.6-1.0)
[2020-04-08 06:45] LABS: PROTIME 10.1 Seconds (9.3-11.4)
[2020-04-08 06:50] LABS: FIBRINOGEN 460.3 mg/dL (210-360)
[2020-04-08 07:06] VITALS: BP 146/82
[2020-04-08 14:36] LABS: URINE BILIRUBIN NEGATIVE (Negative); URINE BLOOD 1+ (Negative); URINE CLARITY CLEAR; URINE COLOR YELLOW; URINE GLUCOSE-RANDOM* 2+ (Negative); URINE KETONES TRACE (Negative); URINE LEUKOCYTES-REFLEX NEGATIVE (Negative); URINE NITRITE-REFLEX NEGATIVE (Negative); URINE PROTEIN (DIPSTICK) 2+ (Negative); URINE UROBILINOGEN 0.2 E.U./dl (0.2-1.0)
[2020-04-08 14:40] LABS: SQUAMOUS 0-3 Few /LPF (0-3); URINE RBC 0-2 Rare /HPF (0-2); URINE WBC-REFLEX None Seen /HPF (0-5)
[2020-04-08 14:41] LABS: BACTERIA-REFLEX None Seen /HPF (None Seen); CRYSTALS None Seen /LPF (None Seen)
[2020-04-08 15:12] VITALS: BP 158/86
[2020-04-08 20:08] VITALS: BP 129/67
[2020-04-09 04:05] VITALS: BP 158/97
[2020-04-09 07:12] LABS: ALBUMIN 2.2 g/dL (3.4-5.0); CALCIUM 8.3 mg/dL (8.5-10.1); CREATININE 1.8 mg/dL (0.6-1.0); POTASSIUM 4.2 mmol/L (3.5-5.1)
[2020-04-09 07:18] VITALS: BP 145/88
[2020-04-09 07:54] LABS: ALBUMIN 2.2 g/dL (3.4-5.0); DIRECT BILIRUBIN < 0.1 mg/dL (<0.1-0.2); SGOT 22 U/L (15-37); SGPT 25 U/L (30-65); TOTAL BILIRUBIN 0.2 mg/dL (0.2-1.0); TOTAL PROTEIN 6.8 g/dL (6.4-8.2)
[2020-04-09] MEDS ORDERED: CEFUROXIME500 MG PO (08:50)
[2020-04-09] MEDS ORDERED: PREDNISONE 5 MG5 M1 PO (08:55)
[2020-04-09 14:45] VITALS: BP 145/88
== END 2020-04-09 16:15 | disposition home or self-care (01) | DRG 177 ==
LOC: ER 19:28 → EROBS 22:24 → 3W 22:24
PROVIDERS: Emergency Medicine; Hospitalist; Nurse Practitioner Family; Specialist; ADMIT Hospitalist; ATTEND Hospitalist
PROC: XW033E5 Introduction of Remdesivir Anti-infective into Peripheral Vein, Percutaneous Approach, New Technology Group 5 (ICD-10-PCS; principal; 2020-04-07)
DX: U07.1 COVID-19 (principal); J12.89 Other viral pneumonia; N17.0 Acute kidney failure with tubular necrosis; K21.9 Gastro-esophageal reflux disease without esophagitis; E11.40 Type 2 diabetes mellitus with diabetic neuropathy, unspecified; E11.65 Type 2 diabetes mellitus with hyperglycemia; I25.10 Atherosclerotic heart disease of native coronary artery without angina pectoris; N18.9 Chronic kidney disease, unspecified; E78.5 Hyperlipidemia, unspecified; E11.22 Type 2 diabetes mellitus with diabetic chronic kidney disease; I12.9 Hypertensive chronic kidney disease with stage 1 through stage 4 chronic kidney disease, or unspecified chronic kidney disease; E86.0 Dehydration; Z82.49 Family history of ischemic heart disease and other diseases of the circulatory system; Z79.82 Long term (current) use of aspirin; Z79.899 Other long term (current) drug therapy; Z95.5 Presence of coronary angioplasty implant and graft; Z90.710 Acquired absence of both cervix and uterus
CPT/HCPCS: 10080; 10879

== ENCOUNTER 2020-06-28 14:25 | Emergency (ER) | payer OTHER ==
[~2020-06-28] VITALS: Ht 160 cm; Wt 90.7 kg
[~2020-06-28 14:25] MED LIST changes: +CEFUROXIME500 MG PO; +PREDNISONE 5 MG5 M1 PO
[2020-06-28] MEDS ORDERED: SALONPAS1 EACH TRANSDERM (15:57)
[2020-06-28 16:56] VITALS: BP 173/109
== END 2020-06-28 16:56 | disposition home or self-care (01) ==
LOC: ER 14:25
DX: M54.12 Radiculopathy, cervical region (principal); M62.838 Other muscle spasm; I10 Essential (primary) hypertension; E11.9 Type 2 diabetes mellitus without complications; K21.9 Gastro-esophageal reflux disease without esophagitis; Z90.710 Acquired absence of both cervix and uterus; Z79.01 Long term (current) use of anticoagulants; Z79.899 Other long term (current) drug therapy; Z79.4 Long term (current) use of insulin; Z79.82 Long term (current) use of aspirin

== ENCOUNTER 2020-08-10 14:03 | Emergency (ER) | payer OTHER ==
[~2020-08-10] VITALS: Ht 160 cm; Wt 90.7 kg
[~2020-08-10 14:03] MED LIST changes: +SALONPAS1 EACH TRANSDERM
[2020-08-10 15:01] LABS: ANION GAP 11 mmol/L (7-16); BUN 41 mg/dL (7-18); CALCIUM 9.8 mg/dL (8.5-10.1); CHLORIDE 91 mmol/L (98-107); CO2 24 mmol/L (21-32); CREATININE 2.4 mg/dL (0.6-1.0); POTASSIUM 4.5 mmol/L (3.5-5.1); SODIUM 126 mmol/L (136-145)
[2020-08-10 15:09] LABS: ALBUMIN 3.4 g/dL (3.4-5.0); DIRECT BILIRUBIN < 0.1 mg/dL (<0.1-0.2); SGPT 50 U/L (30-65); TOTAL BILIRUBIN 0.5 mg/dL (0.2-1.0); TROPONIN-I <0.06 ng/mL (<0.06)
[2020-08-10 15:11] LABS: ABSOLUTE NEUTROPHILS 7.5 thou/uL (1.4-8.2); BASOPHILS 0.5 % (0.0-2.0); EOSINOPHILS 0.8 % (0.0-3.0); HEMATOCRIT 43.4 % (37.0-47.0); LYMPHOCYTES 20.4 % (24.0-44.0); MCH 25.8 pg (26.0-34.0); MCHC 32.4 g/dL (28.0-37.0); MCV 79.6 fL (80.0-100.0); MONOCYTES 5.7 % (1.0-8.0); PLATELET COUNT 263 thou/uL (150-400); POLYS 72.6 % (36.0-66.0); RBC 5.45 mil/uL (4.20-5.00); RDW 13.5 % (10.5-14.5); WBC 10.3 thou/uL (4.0-11.0)
[2020-08-10 15:13] LABS: GLUCOSE 589 mg/dL (74-106)
[2020-08-10 15:32] LABS: SGOT 54 U/L (15-37)
[2020-08-10 16:07] LABS: URINE BILIRUBIN NEGATIVE (Negative); URINE BLOOD TRACE (Negative); URINE CLARITY CLEAR; URINE COLOR YELLOW; URINE GLUCOSE-RANDOM* 3+ (Negative); URINE KETONES NEGATIVE (Negative); URINE LEUKOCYTES-REFLEX NEGATIVE (Negative); URINE NITRITE-REFLEX NEGATIVE (Negative); URINE PROTEIN (DIPSTICK) 2+ (Negative); URINE UROBILINOGEN 0.2 E.U./dl (0.2-1.0)
[2020-08-10 16:19] LABS: SQUAMOUS 0-3 Few /LPF (0-3)
[2020-08-10 16:20] LABS: YEAST-REFLEX Present (None Seen)
[2020-08-10 16:21] LABS: BACTERIA-REFLEX 1-9 Few /HPF (None Seen); CASTS None Seen /LPF (None Seen); CRYSTALS None Seen /LPF (None Seen); URINE RBC 0-2 Rare /HPF (0-2); URINE WBC-REFLEX 0-5 Rare /HPF (0-5)
[2020-08-10 18:34] VITALS: BP 157/100
--- NOTE | 2020-08-11 07:03 | EKG ---
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: FABIO : 1960 Requested By: Lisa Pace Order Number: [id number] MD: Eliot Varghese Measurements Intervals [place] Rate: 101 P: 51 [place]: 127 QRS: 7 QRSD: 103 T: 164 QT: 362 QTc: 470 Interpretive Statements Sinus tachycardia Probable left atrial enlargement Left ventricular hypertrophy Anteroseptal infarct, possibly acute Lateral leads are also involved Compared to ECG 04/05/2020 19:58:16 Left ventricular hypertrophy now present Sinus rhythm no longer present Myocardial infarct finding still present Electronically Signed On 08-11-2020 7:02:59 CDT by Eliot Varghese [email or web address] <ELECTRONICALLY SIGNED> By: Eliot Varghese MD, [facility] 08/11/20 0702 1409 1409 Eliot Varghese MD, [facility] /EPI
== END 2020-08-10 18:34 | disposition home or self-care (01) ==
LOC: ER 14:03
PROVIDERS: Emergency Medicine
DX: R07.89 Other chest pain (principal); I10 Essential (primary) hypertension; E11.9 Type 2 diabetes mellitus without complications; K21.9 Gastro-esophageal reflux disease without esophagitis; Z90.710 Acquired absence of both cervix and uterus; Z79.82 Long term (current) use of aspirin; Z79.899 Other long term (current) drug therapy; Z79.4 Long term (current) use of insulin

== ENCOUNTER 2021-06-17 18:06 | Inpatient (IN) | payer OTHER ==
[~2021-06-17] VITALS: Ht 160 cm; Wt 90.1 kg
[2021-06-17 18:11] VITALS: BP 142/100
[2021-06-17 18:44] LABS: ABSOLUTE NEUTROPHILS 10.5 thou/uL (1.4-8.2); BASOPHILS 0.1 % (0.0-2.0); EOSINOPHILS 1.1 % (0.0-3.0); HEMATOCRIT 45.2 % (37.0-47.0); HEMOGLOBIN 14.4 gm/dL (12.0-15.0); LYMPHOCYTES 3.4 % (24.0-44.0); MCH 25.8 pg (26.0-34.0); MCHC 31.9 g/dL (28.0-37.0); MCV 80.9 fL (80.0-100.0); MONOCYTES 4.3 % (1.0-8.0); PLATELET COUNT 282 thou/uL (150-400); POLYS 91.1 % (36.0-66.0); RBC 5.59 mil/uL (4.20-5.00); RDW 14.4 % (10.5-14.5); WBC 11.6 thou/uL (4.0-11.0)
[2021-06-17 18:56] LABS: CALCIUM 9.3 mg/dL (8.5-10.1); CREATININE 2.5 mg/dL (0.6-1.0); POTASSIUM 4.2 mmol/L (3.5-5.1)
[2021-06-17 19:06] LABS: ALBUMIN 3.5 g/dL (3.4-5.0); TOTAL BILIRUBIN 0.4 mg/dL (0.2-1.0); TOTAL PROTEIN 7.3 g/dL (6.4-8.2)
[2021-06-17 19:33] LABS: URINE BILIRUBIN NEGATIVE (Negative); URINE BLOOD 1+ (Negative); URINE CLARITY SL CLOUDY; URINE COLOR YELLOW; URINE GLUCOSE-RANDOM* 3+ (Negative); URINE KETONES NEGATIVE (Negative); URINE LEUKOCYTES-REFLEX NEGATIVE (Negative); URINE PROTEIN (DIPSTICK) 2+ (Negative); URINE UROBILINOGEN 0.2 E.U./dl (0.2-1.0)
[2021-06-17 19:40] LABS: URINE NITRITE-REFLEX POSITIVE (Negative)
[2021-06-17 19:46] LABS: BACTERIA-REFLEX >30 Many /HPF (None Seen); CASTS None Seen /LPF (None Seen); CRYSTALS None Seen /LPF (None Seen); SQUAMOUS 4-10 Moderate /LPF (0-3)
[2021-06-17 20:03] LABS: URINE RBC 1-2 Rare /HPF (NONE SEEN)
[2021-06-18] MEDS ORDERED: LEVEMIR100 UNIT/2 SUBQ (00:37)
[2021-06-18] MEDS ORDERED: NEURONTIN 400M400 M2 PO (00:43)
[2021-06-18 02:48] VITALS: BP 127/75
--- NOTE | 2021-06-18 03:05 | NUR ---
Pt. arrived to the unit from the emergency room accompanied by staff. She is alert and oriented. Pt. ambulated to the bathroom with stand by assist. Ad- mission assessment and history is completed. Bed alarm is on. She offers no c/o pain.
[2021-06-18 07:08] LABS: HEMATOCRIT 40.4 % (37.0-47.0); MCH 25.7 pg (26.0-34.0); MCHC 32.1 g/dL (28.0-37.0); MCV 80.3 fL (80.0-100.0); RBC 5.03 mil/uL (4.20-5.00); RDW 14.3 % (10.5-14.5); WBC 9.6 thou/uL (4.0-11.0)
[2021-06-18 07:40] LABS: CALCIUM 8.4 mg/dL (8.5-10.1); CREATININE 2.6 mg/dL (0.6-1.0); POTASSIUM 4.2 mmol/L (3.5-5.1)
[2021-06-18 08:55] VITALS: BP 151/92
--- NOTE | 2021-06-18 09:34 | NUR ---
ORDERS FOR EVAL AND TREAT. Pt STATES I DON'T NEED PHYSICAL THERAPY. I'M MOVING FINE AND I JUST TOOK MYSELF TO THE [facility] BATHR[facility]. Pt DECLINING A FORMAL P.T. EVAL BUT SOUNDS LIKE SHE IS MOVING AT BASELINE
[2021-06-18 11:55] VITALS: BP 135/70
[2021-06-18 16:00] VITALS: BP 120/69
[2021-06-18 20:20] VITALS: BP 143/90
--- NOTE | 2021-06-19 04:50 | NUR ---
PT BEEN RESTING IN NO ACUTE DISTRESS.A/OX4.VSS.PT ASKING STAFF TO UNPLUG THE IV FLUIDS MUTIPLE TIMES TO USE THE BR.PT EDUCATED ON HOW TO ROLL THE IV FLUID/PUMP/POLE WITH HER TO THE BR TO KEEP THE FLUIDS THERAPY/ABT THERAPY ONGOING ORDERED.PT VOICED THE UNDERSTANDING BUT LATER COMPLAINED TO STAFF ABOUT IT.BSC WAS PROVIDED TO MAKE IT EASIER FOR THE PT TO USE THE BR.PAIN MEDS GIVEN FOR HEADACHE WITH COMPLETE RELIEF WELL TUMS FOR HEARTBURN.WILL CONT TO MONITOR PER POC.
[2021-06-19 07:20] VITALS: BP 146/84
[2021-06-19 08:08] LABS: GLYCOHEMOGLOBIN (HGB A1C) 9.8 % (4.8-5.6)
[2021-06-19 10:36] LABS: HEMATOCRIT 41.2 % (37.0-47.0); HEMOGLOBIN 13.1 gm/dL (12.0-15.0); MCH 25.8 pg (26.0-34.0); MCHC 31.8 g/dL (28.0-37.0); RBC 5.08 mil/uL (4.20-5.00); RDW 14.4 % (10.5-14.5); WBC 8.1 thou/uL (4.0-11.0)
[2021-06-19 10:47] LABS: CALCIUM 8.4 mg/dL (8.5-10.1); CREATININE 2.3 mg/dL (0.6-1.0); POTASSIUM 3.7 mmol/L (3.5-5.1)
--- NOTE | 2021-06-19 11:01 | NUR ---
ASSUMED CARE OF PT AT 0700 THIS MORNING. PT IS A/OX4 AND HAS NO COMPLAINTS. PT STATED SHE HOPES TO BE DISCHARGED THIS AFTERNOON. ASSESSMENTS NOTED IN CHART AND OTHERWISE UNREMARKABLE. NO FALL PRECAUTIONS ARE NEEDED. CALL LIGHT AND OTHER NEEDS ARE WITHIN REACH. MEDS AND TX GIVEN NEEDED AND SCHEDULED. WILL MONITOR AND NOTE ANY CHANGES.
[2021-06-19 11:55] VITALS: BP 146/76
[2021-06-19] MEDS ORDERED: CEFPODOXIME PR200 M1 PO (14:26)
[2021-06-19 14:40] VITALS: BP 146/76
== END 2021-06-19 15:50 | disposition home or self-care (01) | DRG 689 ==
LOC: ER 18:06 → EROBS 21:21 → 4S 21:21
PROVIDERS: Emergency Medicine; Internal Medicine; Nurse Practitioner Family; ADMIT Hospitalist; ATTEND Hospitalist
DX: N12 Tubulo-interstitial nephritis, not specified as acute or chronic (principal); R65.11 Systemic inflammatory response syndrome (SIRS) of non-infectious origin with acute organ dysfunction; N17.9 Acute kidney failure, unspecified; E11.42 Type 2 diabetes mellitus with diabetic polyneuropathy; K21.9 Gastro-esophageal reflux disease without esophagitis; E11.65 Type 2 diabetes mellitus with hyperglycemia; N18.30 Chronic kidney disease, stage 3 unspecified; I25.10 Atherosclerotic heart disease of native coronary artery without angina pectoris; R53.81 Other malaise; E11.22 Type 2 diabetes mellitus with diabetic chronic kidney disease; I12.9 Hypertensive chronic kidney disease with stage 1 through stage 4 chronic kidney disease, or unspecified chronic kidney disease; E66.01 Morbid (severe) obesity due to excess calories; E78.5 Hyperlipidemia, unspecified; Z20.822 Contact with and (suspected) exposure to COVID-19; Z95.5 Presence of coronary angioplasty implant and graft; Z68.35 Body mass index [BMI] 35.0-35.9, adult; Z90.710 Acquired absence of both cervix and uterus; Z83.3 Family history of diabetes mellitus; Z82.49 Family history of ischemic heart disease and other diseases of the circulatory system; Z82.3 Family history of stroke
CPT/HCPCS: 10100